=== PATIENT | female | born 2005 | race Caucasian/White ===

== ENCOUNTER 2024-10-28 13:31 | Emergency (ER) | payer BC ==
[~2024-10-28] VITALS: Ht 175.3 cm; Wt 83.3 kg
[2024-10-28 13:36] VITALS: BP 147/93; PULSE 98; RESP 18; TEMP 98.6; O2SAT 97
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
[2024-10-28] MEDS ORDERED: ketorolac trometh 15mg/ml vial 15 MG/ML ML IM ONE (15:45)
== END 2024-10-28 16:02 | disposition left against medical advice (07) ==
LOC: ER 13:32
DX: S00.83XA Contusion of other part of head, initial encounter (principal); F10.129 Alcohol abuse with intoxication, unspecified; Y08.89XA Assault by other specified means, initial encounter; Y93.89 Activity, other specified; Y92.89 Other specified places as the place of occurrence of the external cause; Y99.8 Other external cause status; Y90.9 Presence of alcohol in blood, level not specified
CPT/HCPCS: 99282